=== PATIENT | male | born 1975 ===

== ENCOUNTER 2017-08-27 19:56 | Emergency (ER) | payer MEDICAID ==
[2017-08-27] MEDS ORDERED: Lidocaine 1% with EPINEPHrine 1:100,000 20 ML MDV ONE (20:00)
--- NOTE | 2017-08-28 01:04 | ER ---
HISTORY OF PRESENT ILLNESS: A 42-year-old male here with complaints of falling and cutting the back of his head and having some loss of consciousness. He was out on the [place] with his buddies. He stepped out of the fishing shack. He is not even sure why his kim thinks he went out to have a cigarette and the next thing he remembers, his friends were helping him in the truck to bring him in here for evaluation. The patient has asked his kim a couple of times what happened. He was awake when they noticed him, but he was not making much sense. His head seemed to clear up a little bit on the way in to town. The patient states that his head hurts a little bit where the cut is. He denies any problems with neck pain, chest pain, or abdominal pain. The patient is not on any blood thinners. OBJECTIVE: GENERAL APPEARANCE: The patient is awake, he appears slightly groggy. He is pleasant and talkative. He is alert to person, place, date. GCS is 15. VITAL SIGNS: Reviewed. Blood pressure 112/75, he is afebrile, pulse is 74, O2 sats are good at 100%. Examining the back of the patient's head reveals an angulated incision that is about 6.5 cm in length on the occipital lobe starting high and going down to behind the ear. There is mild gaping present. There is no active bleeding at this time. The wound appears to be full-thickness. HEENT: Eyes pupils equal, round, and reactive to light. EOMs are intact with sluggish. Ears, TMs are normal. Oral mucous membranes are moist. Tonsils not enlarged or injected. Pharynx not inflamed. NECK: Supple. LUNGS: Clear. The patient has full and unguarded range of motion of his head of neck without any additional pain. LAB AND X-RAY: Head CT was obtained which is negative for hemorrhage or fracture. DIAGNOSES: 1. Fall with mild concussion. 2. Laceration due to fall. TREATMENT PLAN: The patient's laceration was cleansed with a Betadine/saline solution, after which I injected 1% lidocaine with epinephrine locally for anesthesia. We cleansed the area well and after this, I repaired the laceration using ricky. It required 10 ricky to close the wound. The patient tolerated this well. Antibiotic was applied to the incision by nursing staff. The patient was able stand and move around the exam room well without any unsteadiness. He has not had any problems with nausea. He has not vomited. He states he was drinking several of alcoholic beverages today. DISCHARGE: The patient will be able to be discharged with a residential driver, who is his . She is here with him. He is not to drive a vehicle for 2 days. He is to rest, use Tylenol as needed for any headaches and the ricky should come out in 10 days. He is to call his local clinic to have this done. If he develops any sign of infection, he is to call into his clinic for an antibiotic. If his symptoms get worse, he is to either call the clinic or the emergency room as needed. The patient has no further questions. CRS/MODL /[id number] ALAYNA
--- NOTE | 2017-08-28 08:45 | CT ---
DATE OF SERVICE: 08/27/17 CLINICAL DATA: FALL UNENHANCED BRAIN CT: Multislice acquisition through the brain without IV contrast was performed. No priors. No masses or mass effect. No intracranial hemorrhage. No evidence of acute or subacute infarct. There is soft tissue swelling of the scalp in the right posterior parietal region. There is also an adjacent skin laceration. No underlying fractures. IMPRESSION: No acute intracranial abnormalities. [id number] [facility]
== END 2017-08-27 21:10 | disposition home or self-care (01) ==
LOC: LB.ED 19:56
DX: S06.0X1A Concussion with loss of consciousness of 30 minutes or less, initial encounter (principal); S01.01XA Laceration without foreign body of scalp, initial encounter; W00.0XXA Fall on same level due to ice and snow, initial encounter
CPT/HCPCS: 12002; 70450; 99283-25